=== PATIENT | male | born 1970 | race African-American/Black ===

== ENCOUNTER 2020-07-21 14:43 | Emergency (ER) | payer BC, MEDICAID ==
[~2020-07-21] VITALS: Ht 167.6 cm; Wt 65.9 kg
[2020-07-21 14:47] VITALS: BP 111/59
== END 2020-07-21 15:48 | disposition home or self-care (01) ==
LOC: EMS 14:47
DX: H00.012 Hordeolum externum right lower eyelid (principal); F17.210 Nicotine dependence, cigarettes, uncomplicated
CPT/HCPCS: 99283; Z7502